=== PATIENT | male | born 1950 | race Caucasian/White ===

== ENCOUNTER → 2021-03-18 | Outpatient (CLI) | payer MEDICARE, OTHER | END | disposition home or self-care (01) | LOC: LAB SHORT 11:39 | DX: D22.62 Melanocytic nevi of left upper limb, including shoulder (principal) | CPT/HCPCS: 88305 ==

== ENCOUNTER → 2021-08-23 | Outpatient (CLI) | payer MEDICARE, OTHER | END | disposition home or self-care (01) | LOC: LAB 12:38 → LAB SHORT 12:38 | DX: Z20.822 Contact with and (suspected) exposure to COVID-19 (principal) | CPT/HCPCS: U0003 ==

== ENCOUNTER → 2022-07-20 | Outpatient (CLI) | payer MEDICARE, OTHER | END | disposition home or self-care (01) | LOC: LAB SHORT 11:05 → PLD 11:05 | DX: L57.0 Actinic keratosis (principal) | CPT/HCPCS: 88305; 88312 ==